=== PATIENT | female | born 1970 | race Caucasian/White ===

== ENCOUNTER 2018-03-01 06:30 | Observation (INO) ==
[2018-03-01] MEDS ORDERED: Propofol Inj 500 MG/50 ML Vial ONE (07:11)
[2018-03-01] MEDS ORDERED: Chlorhexidine Gluconate 2% 1 Pack (2 Cloths) TOPICAL SCH ×2 (07:15)
[2018-03-01] MEDS ORDERED: Metoprolol Tartrate 25 MG Tablet PO SCH ×2 (07:15)
[2018-03-01] MEDS ORDERED: Famotidine PF Inj 20 MG/2 ML Vial ONE (07:52)
[2018-03-01] MEDS ORDERED: ceFAZolin 2 GM/NS 100 ML IV; Q8H IV.SIG SCH ×2 (08:00)
[2018-03-01] MEDS ORDERED: Sodium Chlor 0.9% Inj 500 ML IV.SIG SCH ×2 (08:00)
[2018-03-01] MEDS ORDERED: Gelatin Size 100 Topical Foam ONE (08:13)
[2018-03-01] MEDS ORDERED: Thrombin Topical Soln 5,000 UNIT Vial TOPICAL ONE (08:13)
[2018-03-01] MEDS ORDERED: Bisacodyl 10 MG Supp RECTAL PRN (09:28)
[2018-03-01] MEDS ORDERED: Acetaminophen 325 MG Tablet PO PRN (09:28)
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
[2018-03-01] MEDS ORDERED: Dextrose 50% in Water 50 ML Vial IV.PUSH PRN (09:31)
[2018-03-01] MEDS ORDERED: fentaNYL Citrate Inj 100 MCG/2 ML Ampul ONE (11:53)
[2018-03-01] MEDS ORDERED: Naproxen 375 MG Tablet PO PRN (11:58)
[2018-03-01] MEDS ORDERED: *Meperidine Inj 25 MG/ML Vial PERIprocedural Use ONLY ONE (12:05)
[2018-03-01] MEDS: Sod Chloride 0.9% Inj 1,000 ML IV.CONT SCH ×2 (12:09→22:38)
[2018-03-01] MEDS: Insulin NovoLOG Aspart Correctional Sugar Inj SQ SCH ×2 (12:25→17:00)
--- NOTE | 2018-03-01 12:28 | P.OP ---
- Preoperative Diagnosis (1) Cervical disc displacement (2) Other cervical disc displacement at C5-C6 level - Postoperative Diagnosis (1) Other cervical disc displacement at C5-C6 level Date of procedure: 03/01/18 Procedure: C5-6 anterior cervical discectomy and arthroplasty using Mobi C Anesthesia: AMANDA Surgeon: Gagan Long MD [employer] Kiln Operator: Sallie Ly Pathology: none sent Operation and Findings: INDICATIONS FOR THE PROCEDURE ms Krause is a 47 year-old female who presented with intractable neck pain and a C6 upper extremity cervical radiculopathy. She was found to have a disc herniation at C5-6, causing mass effect on the nerve root. She has failed multiple modalities of nonsurgical treatment and has a very poor quality of life and her symptoms were affecting her quality of life. An anterior cervical discectomy and arthroplasty were indicated. The pqxs-kr-torz details of the surgical procedure, indications, alternatives, risks and potential complications were fully discussed with the patient. The patient fully understood. All her questions were answered. No guarantees were given. She voiced requesting the procedure and signed informed consents. She was offered the alternative of delaying the procedure and continuing with nonsurgical management. DETAILS OF THE SURGICAL PROCEDURE SURGICAL APPROACH A skin incision was made along the middle cervical crease with a #10 blade. The dissection was carried out through the platysma exposing the sternocleidomastoid muscle. The cervical spine was approached following the fascial layers of the neck, just medial to the anterior border of the sternocleidomastoid and carotid sheath by a combination of sharp and dull dissection. The omohyoid muscle was identified and carefully dissected laterally and the deep cervical fascia was carefully opened. The longus colli muscles were retracted to each side of the midline. A marker was placed at the C5-6 disc space and a cross-table lateral x-ray performed with a C-arm. An AP xray was then obtained as well, and the midline of the disk space was defined. SURGICAL DECOMPRESSION In order to decompress the anterior surface of the spinal cord it was necessary to perform a microsurgical resection of the disk. At this point in the procedure the operating microscope was draped in the usual sterile fashion and brought to the field. The rest of the surgical procedure was performed using microdissection technique with the exception of the closure. Under the operative microscopic a self-retaining retractor was placed underneath the longus colli muscle. The annulus at C5-6 was incised with a #15 blade and microdiscectomy was then carefully carried out using angled curets and pituitary forceps. The patient had a large disk extrusion which was producing mass affect on the exiting nerve root. This was carefully dissected with a nerve hock and resected with a think foot plate 2 mm Kerrison under high magnification. The posterior longitudinal ligament was then elevated with an angled curet and incised with a 15 bladed knife. A careful resection of the posterior longitudinal ligament was carried out using a thin footplate 2 mm Kerrison. Extruded disk causing mechanical compression of the C6 nerve root were carefully dissected. The decompression was then carried out laterally, and a bilateral foraminotomy was performed with a 2 mm thin foot Kerrison. The epidural space was the systematically assessed with a nerve hook in search for disk fragments of scar tissue. An excellent decompression was achieved in both , the dural sac and bilateral exiting nerve roots. The incision was then irrigated with a large amount of antibiotic solution INTERBODY ARTHROPLASTY In order to avoid collapse of the disk space which would result in bilateral foraminal stenosis, and in order to maintain disk space height and function minimally development of adjacent level degeneration, it was necessary to place an interbody device. At this point of the procedure, gentle distraction was applied. The size of the interbody device was then assessed using a trial, and a cross table xray was done for confirmation of appropriate size and position of the device. Then the disk space was irrigated with antibiotic solution, and a 15mm by 5mm Mobi C artificial disk was carefully impacted into the disc space C5-6. An excellent position of the device was achieved. This was confirmed anatomically by feeling the space posterior to the implant and distance to the anterior surface of the dural sac. Radiological confirmation of the position was performed with a cross table AP and lateral X-ray views, performed with the C-arm. COMPLETION OF THE SURGICAL PROCEDURE Once that each interbody device was in an appropriate position, the distraction was discontinued. The position of the device as well as alignment of the spine were assessed anatomically by direct visualization, and radiologically by performing an AP and lateral X-ray of the cervical spine with the C-arm. The position of the implant was excellent. The incision was irrigated with several liters of antibiotic solution. Hemostasis was achieved with a bipolar. The incision was then closed in layers. 3-0 Vicryl with interrupted sutures was used to close the platysma and subcutaneous tissue. The skin was closed with 4-0 running subcuticular Vicryl and Dermabond was applied to the skin. At the end of the procedure the sponge, needle and instrument counts were all correct. The estimated blood loss was less than 50 cc. No blood transfusion was given. No intraoperative complications occurred. The patient received prophylactic antibiotics. The patient was then extubated and transferred to the recovery room in stable condition.
--- NOTE | 2018-03-01 13:05 | XR ---
EXAM DATE: 03/01/2018 12:08 PM EDT AGE/SEX: 47 years / Female INDICATIONS: Herniated disk, artificial disk placement C5-6 CLINICAL DATA: This is the patient's initial encounter. Patient reports that signs and symptoms have been present for 1 day and indicates a pain score of Nonresponsive. MEDICAL/SURGICAL HISTORY: None. . COMPARISON: No prior exams available for comparison. FINDINGS: Artificial disc is seen at C5-C6 in anatomic alignment on fluoroscopic spot films. Conventional AP la teral films would be of benefit. CONCLUSION: Post surgery as above. Electronically signed by: Sal Beal MD 03/01/2018 1:04 PM EDT
[2018-03-01] MEDS: Menthol 5.8 MG Lozenge BUCCAL PRN (13:56)
[2018-03-01] MEDS ORDERED: Neostigmine Inj 5 MG/5 ML Syringe IV.PUSH ONE (15:10)
[2018-03-01] MEDS ORDERED: Lidocaine PF 1% Inj 5 ML Syringe INFILTRATN ONE (15:10)
[2018-03-01] MEDS ORDERED: Glycopyrrolate Inj 1 MG/5 ML Syringe IV.PUSH ONE (15:10)
[2018-03-01] MEDS: Gabapentin 300 MG Capsule PO SCH ×2 (15:53→17:00)
[2018-03-01] MEDS: ceFAZolin Inj 2,000 MG in Sodium Chlor 0.9% Inj 100 ML IV.SIG SCH (16:58)
[2018-03-01] MEDS: oxyCODONE/Acetaminophen 10/325 Tablet PO PRN (18:39)
[2018-03-01] MEDS ORDERED: [UNRECOGNIZED DRUG - OTHER] PO SCH (21:00)
[2018-03-01] MEDS: Ascorbic Acid 500 MG Tablet PO SCH (22:37)
[2018-03-01] MEDS: Senna/Docusate Sodium 8.6/50 MG Tablet PO SCH (22:38)
[2018-03-02] MEDS: ceFAZolin Inj 2,000 MG in Sodium Chlor 0.9% Inj 100 ML IV.SIG SCH ×2 (01:02→08:39)
[2018-03-02] MEDS: oxyCODONE/Acetaminophen 10/325 Tablet PO PRN ×3 (01:27→14:38)
[2018-03-02] MEDS: Insulin NovoLOG Aspart Correctional Sugar Inj SQ SCH ×3 (06:26→12:02)
[2018-03-02] MEDS: Sod Chloride 0.9% Inj 1,000 ML IV.CONT SCH (07:14)
[2018-03-02] MEDS: Gabapentin 300 MG Capsule PO SCH ×2 (08:36→12:15)
[2018-03-02] MEDS: Menthol 5.8 MG Lozenge BUCCAL PRN (08:38)
[2018-03-02] MEDS: Ascorbic Acid 500 MG Tablet PO SCH (08:38)
[2018-03-02] MEDS: Senna/Docusate Sodium 8.6/50 MG Tablet PO SCH (08:39)
[2018-03-02] MEDS ORDERED: Duloxetine 60 MG DR Capsule PO SCH (09:00)
[2018-03-02] MEDS ORDERED: Non-Formulary Drug (Omega 3-Dha-Epa-Fish Oil [Fish Oil] 1,200 MG) PO SCH (09:00)
[2018-03-02] MEDS ORDERED: BIOTIN PO SCH (09:00)
[2018-03-02 11:15] VITALS: RESP 18
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
[2018-03-02 14:51] VITALS: O2SAT 92
[2018-03-02 14:52] VITALS: BP 128/83; PULSE 75; TEMP 98.1
== END 2018-03-02 15:11 | disposition home health service (06) ==
LOC: HSDC 06:30 → HSDI 06:30 → N06 13:34
PROVIDERS: ADMIT Neurological Surgery; ATTEND Neurological Surgery